=== PATIENT | male | born 1985 | race Caucasian/White ===

== ENCOUNTER 2019-01-30 15:46 | Emergency (ER) | payer OTHER, SELFPAY ==
[2019-01-30 16:00] VITALS: BP 139/81; PULSE 68; RESP 14; TEMP 37.2; O2SAT 100
--- NOTE | 2019-01-30 16:03 | DI.RAD.S_ITS ---
PROCEDURE: XR KNEE RT 3V INDICATIONS: stepped off ladder and had pain right knee. Increased w/ wb. TECHNIQUE: 3 views of the knee were acquired. COMPARISON: [facility], , KNEE 3V LEFT, 08/07/2008, 18:22. FINDINGS: Bones: No fractures or dislocations. No suspicious bony lesions. Soft tissues: No joint effusion. No suspicious soft tissue calcifications. IMPRESSION: No acute bony abnormality of the right knee. Dictated by: Hu Dugan M.D. on 01/30/2019 at 16:35 Approved by: Hu Dugan M.D. on 01/30/2019 at 16:45
--- NOTE | 2019-01-30 18:19 | ED.LOWEXIN ---
HPI - Extremity Injury (Lower) <ZAFAR Perez - Last Filed: 01/30/19 22:06> General Chief Complaint: Extremity Injury, Lower Stated Complaint: RT KNEE INJURY Time Seen by Provider: 01/30/19 18:19 Source: patient Mode of arrival: ambulatory Limitations: no limitations History of Present Illness HPI Narrative: 33-year-old healthy male that is a nonsmoker here for complaint of pain into his right knee. He states that he was stepping off of a ladder today at work when he stepped awkwardly twisting his knee slightly causing pain into the lateral aspect of his right knee. He denies any direct trauma to the knee. He is ambulatory into the emergency room although it does cause him some discomfort when he ambulates. He denies any other foot injuries or concerns at this timeframe. Related Data Home Medications Medication Instructions Recorded Confirmed CLONAZEPAM (Klonopin) 2 mg PO QID #0 09/01/09 LAMOTRIGINE (Lamictal ([place])) 200 mg PO Q DAY #0 09/01/09 dextroamphetamine-amphetamine mg PO #0 06/18/12 [Adderall] gabapentin [Gralise] mg PO #0 06/18/12 Allergies Allergy/AdvReac Type Severity Reaction Status Date / Time shellfish derived Allergy Severe Anaphylaxis Verified 01/30/19 16:02 Review of Systems <ZAFAR Perez - Last Filed: 01/30/19 22:06> Constitutional Denies chills, Denies fever(s), Denies lethargy and Denies weakness Eyes Denies change in vision, Denies eye discharge, Denies irritation and Denies loss of vision ENT Ears, Nose, Mouth, and Throat: Denies change in voice, Denies neck pain and Denies sore throat Cardiovascular Denies chest pain, Denies irregular heart rhythm, Denies lightheadedness, Denies palpitations, Denies dyspnea, Denies dyspnea on exertion and Denies orthopnea Respiratory Denies cough, Denies dyspnea, Denies dyspnea on exertion and Denies wheezing Gastrointestinal Gastrointestinal: Denies abdominal pain, Denies change in bowel habits, Denies diarrhea, Denies nausea and Denies vomiting Musculoskeletal Denies neck pain Comments: Right knee pain Integumentary/Breasts Denies pruritus, Denies erythema, Denies rash and Denies wounds Neurologic Denies confusion, Denies loss of vision and Denies weakness Psychiatric Denies anxiety, Denies confusion, Denies depression, Denies homicidal ideation and Denies suicidal ideation Endocrine Denies palpitations Hematologic/Lymphatic Denies easy bruising Allergic/Immunologic Denies wheezing PFSH <ZAFAR Perez - Last Filed: 01/30/19 22:06> Social History Smoking Status: Current some day smoker Social History Smoking Status: Current some day smoker Exam <ZAFAR Perez - Last Filed: 01/30/19 22:06> Initial Vital Signs Initial Vital Signs: Vital Signs Temperature 98.9 F 01/30/19 16:00 Pulse Rate 68 01/30/19 16:00 Respiratory Rate 14 01/30/19 16:00 Blood Pressure 139/81 01/30/19 16:00 Pulse Oximetry 100 01/30/19 16:00 Const General: cooperative and well developed Nutritional Appearance: well nourished Orientation: alert, awake, oriented x3 and not confused HENMT Throat: posterior oropharynx normal and posterior oropharynx abnormal Eyes Eyelids: eyelids normal Conjunctivae: conjunctivae normal Sclera: sclerae normal Pupils: PERRL EOM: EOM intact bilaterally Cardio Rate: regular rate Rhythm: regular rhythm Heart Sounds: no click, no gallops, no murmurs and no rubs Pulses: normal peripheral pulses Skin General: no rashes or lesions noted, No jaundice and No petechiae Neuro General: alert, oriented x3, gait normal and no focal motor deficits Speech: speech normal Extrem Other: right knee with no signs of trauma no ecchymosis. No swelling. No erythema. No open lesions. Distal sensation is intact. Distal range of motion is intact. Distal pulses are intact. Negative anterior-posterior drawer sign. Negative varus and valgus stress test. <Daron Gurrola DO - Last Filed: 01/31/19 06:56> Initial Vital Signs Initial Vital Signs: Vital Signs Temperature 98.9 F 01/30/19 16:00 Pulse Rate 68 01/30/19 16:00 Respiratory Rate 14 01/30/19 16:00 Blood Pressure 139/81 01/30/19 16:00 Pulse Oximetry 100 01/30/19 16:00 Course <ZAFAR Perez - Last Filed: 01/30/19 22:06> Orders Ordered: Discontinued Medications Ibuprofen (Advil) 400 mg PO NOW ONE Stop: 01/30/19 19:03 Last Admin: 01/30/19 19:12 Dose: Not Given Vital Signs - 8 hr 01/30/19 16:00 01/30/19 19:05 01/30/19 19:21 Temperature 98.9 F Pulse Rate 68 68 Pulse Rate [Right Dorsalis Pedis] 68 Respiratory Rate 14 Blood Pressure 139/81 Pulse Oximetry 100 100 <Daron uGrrola DO - Last Filed: 01/31/19 06:56> Orders Ordered: Discontinued Medications Ibuprofen (Advil) 400 mg PO NOW ONE Stop: 01/30/19 19:03 Last Admin: 01/30/19 19:12 Dose: Not Given Vital Signs - 8 hr 01/30/19 16:00 01/30/19 19:05 01/30/19 19:21 Temperature 98.9 F Pulse Rate 68 68 Pulse Rate [Right Dorsalis Pedis] 68 Respiratory Rate 14 Blood Pressure 139/81 Pulse Oximetry 100 100 MDM - Extremity Injury (Lower) <ZAFAR Perez - Last Filed: 01/30/19 22:06> Imaging Data R knee: Radiologist's impression: [place] [address] XRay Report Signed Patient: Rigo Petit PMR#: [id number] : 1985Acct:[id number] Age/Sex: 33 / MDate of Service: 01/30/19 Loc: ED Accession Number: [id number] Procedure: XR knee RT 3V Ordering Provider: Daron Gurrola D.O. PROCEDURE: XR KNEE RT 3V INDICATIONS: stepped off ladder and had pain right knee. Increased w/ wb. TECHNIQUE: 3 views of the knee were acquired. COMPARISON: [facility], , KNEE 3V LEFT, 08/07/2008, 18:22. FINDINGS: Bones: No fractures or dislocations. No suspicious bony lesions. Soft tissues: No joint effusion. No suspicious soft tissue calcifications. IMPRESSION: No acute bony abnormality of the right knee. Dictated by: Hu Dugan M.D. on 01/30/2019 at 16:35 Approved by: Hu Dugan M.D. on 01/30/2019 at 16:45 MDM Narrative Medical decision making narrative: X-ray the right knee was obtained was negative for any acute findings. Signs and symptoms presents sprain to the right knee. He is placed in knee immobilizer and crutches for comfort and support. rest area. Use [id number] ibuprofen as needed for any discomfort. Ice and elevation help with any swelling. Follow up with primary care provider. May need to have MRI if symptoms do not resolve. Return emergency room for worsening symptoms. Discharge Plan Departure Patient Disposition: Home Clinical Impression: Right knee sprain Qualifiers: Encounter type: initial encounter Involved ligament of knee: unspecified ligament Qualified Code(s): S83.91XA - Sprain of unspecified site of right knee, initial encounter Discharge Date/Time: 01/30/19 19:22 Interventions: ED Discharge Assessment Last Done: 01/30/19 19:21 Instructions: DI for Knee Sprain Activity Restrictions/Additional Instructions: x-ray of the right and knee was obtained and was negative for any acute fractures or findings. Signs and symptoms presents sprain to the right knee. Rest area. Use knee immobilizer and crutches for nonweightbearing until able to bear weight pain free. Follow up with primary care provider. Use [id number] ibuprofen as needed for any discomfort. Ice as needed and elevation to help with swelling. If symptoms do not resolve recommend follow up with primary care provider as may need MRI for further evaluation. For any worsening symptoms return to the emergency room. Prescriptions: No Action CLONAZEPAM (Klonopin) 2 mg PO QID Qty: 0 RF: 0 LAMOTRIGINE (Lamictal ([place])) 200 mg PO Q DAY Qty: 0 RF: 0 gabapentin [Gralise] 300 MG tablet extended release 24 hr PO Qty: 0 RF: 0 dextroamphetamine-amphetamine [Adderall] 30 MG tablet PO Qty: 0 RF: 0 Referrals: [facility], [facility] [Provider Group] Stand Alone Forms: Work Release Note <Daron Gurrola DO - Last Filed: 01/31/19 06:56> Cosign ED Attending Josueature Attestation: I was immediately available in the department for consultation. Documentation has been reviewed. I agree with assessment and plan.
[2019-01-30 19:05] VITALS: PULSE 68
[2019-01-30 19:21] VITALS: PULSE 68; O2SAT 100
== END 2019-01-30 19:22 | disposition home or self-care (01) ==
PROVIDERS: Emergency Provider Nurse Practitioner Family
DX: S83.91XA Sprain of unspecified site of right knee, initial encounter (principal); W11.XXXA Fall on and from ladder, initial encounter; Y99.0 Civilian activity done for income or pay
CPT/HCPCS: 73562; 99283

== ENCOUNTER 2022-12-20 13:01 | Emergency (ER) | payer MEDICARE, MEDICAID, SELFPAY ==
[2022-12-20 13:06] VITALS: PULSE 66; O2SAT 97
[2022-12-20 13:08] VITALS: BP 120/67; PULSE 61; RESP 20; TEMP 36.6; O2SAT 98
[2022-12-20 13:09] VITALS: BP 120/67; PULSE 62; O2SAT 97
--- NOTE | 2022-12-20 13:15 | ED.CHESTPAIN ---
HPI - Chest Pain <Kayley Pollock PA-C - Last Filed: 12/20/22 19:58> General Chief Complaint: Chest Pain Stated Complaint: chest pain Time Seen by Provider: 12/20/22 13:13 Source: patient and EMS Mode of arrival: EMS Limitations: no limitations History of Present Illness HPI narrative: Patient is a 37-year-old presenting for evaluation of chest pain since he woke up at noon this afternoon. He describes his symptoms as having difficulty breathing with pain in his chest with some slight radiation down his left arm. He says that nothing seems to improve the pain, and it worsens when he attempts to force of breath. Denies any new activities last night, and denies working, because he is on disability. Chronic conditions include anxiety for which he takes clonazepam 1 mg t.i.d.. He also notes that he takes ketamine intranasally for depression. He says he takes this as needed. This morning, he has taken 2 clonazepam and a few doses of ketamine. He does note that he is a current smoker. Denies illegal drug activity he denies family history of heart attack, but he does not know about his dad side. His mom has come in the ED to be with him he says the pain in his chest hurts worse with leaning forward he is noted some increased sweating last night, but denies known fever. He reports increased pain in his chest when stretching his shoulders back and raising his hands above his head in a stretch in addition to a deep inhale. He reprots improvement in pain when laying back. He cannot recall any new activity last night. He denies recent illness or coughing. He reports a feeling of weakness and dizziness. He is a current smoker. Related Data Home Medications Medication Instructions Recorded Confirmed CLONAZEPAM (Klonopin) 2 mg PO QID ##0 09/01/09 LAMOTRIGINE (Lamictal ([place])) 200 mg PO Q DAY ##0 09/01/09 dextroamphetamine-amphetamine 30 mg PO ##0 06/18/12 mg tablet (Adderall) gabapentin 300 mg tablet,extended mg PO ##0 06/18/12 release 24 hr (Gralise) Allergies Allergy/AdvReac Type Severity Reaction Status Date / Time shellfish derived Allergy Severe Anaphylaxis Verified 12/20/22 13:12 Review of Systems <Kayley Pollock PA-C - Last Filed: 12/20/22 19:58> Review of Systems Narrative: per HPI Patient History <Kayley Pollock PA-C - Last Filed: 12/20/22 19:58> Social History Smoking Status: Current some day smoker Smoking Status: Current some day smoker alcohol intake frequency: 0-2 drinks per day Substance Use Type: marijuana Exam <Kayley Pollock PA-C - Last Filed: 12/20/22 19:58> Narrative Exam Narrative: GENERAL: 37 year old patient appears stated age. Well-developed patient, in mild distress with sweating. HEAD: Atraumatic. Normocephalic. EYES: Pupils equal round and reactive. No scleral icterus. No injection or drainage. Airway patent. NECK: Trachea midline. Non tender CARDIOVASCULAR: Regular rate and rhythm without murmurs, gallops, or rubs. Chest pain worse while leaning forward, reproducible and worse on left side with applied external pressure. pain increased with leftsided external pressure. RESPIRATORY: Clear to auscultation. Breath sounds equal bilaterally. No wheezes, rales, or rhonchi. GASTROINTESTINAL: Abdomen soft, non-tender, nondistended. EXTREMITIES: No edema or joint tenderness. BACK: Nontender without deformity. MS: Equal strength in bilateral machine welder 4+, NEURO: AOx3. SKIN: No rash or erythema of visible areas, ovoid scar under left clavicle Initial Vital Signs Initial Vital Signs: Vital Signs Pulse Rate 66 12/20/22 13:06 Pulse Oximetry 97 12/20/22 13:06 <Aundrea Brown MD - Last Filed: 12/21/22 01:08> Initial Vital Signs Initial Vital Signs: Vital Signs Pulse Rate 66 12/20/22 13:06 Pulse Oximetry 97 12/20/22 13:06 Course <Kayley Pollock PA-C - Last Filed: 12/20/22 19:58> Orders Ordered: ED Orders 12/20/22 13:27 XR chest 1V Stat 12/20/22 13:29 EKG-12 Lead Stat Reevaluation(s) Reevaluation #1: Went in to discuss EKG results with patient and his mother. Discussed that EKG did not show concerning cardiac changes at this time. Patient reports that the radiation of pain to the left seems to be improving. He re-affirms that pain seems to be worsened by specific movements and external pressure. We are awaiting CXR and radiologist read. Vital signs continue to be within normal limits. Reevaluation #2: During check with patient and his mom, he appears more anxious and is walking around his room. He has removed his leads and blood pressure cuff. He denies change in symptoms since coming in. He notes continued pain in his chest with deep breathing unchanged by activity. He reports that he feels out of it generally. We discussed radiologist interpretation of his CXR which was normal. We discussed that his condition is likely due to either anxiety or musculoskeletal origin because pain is reproducible with external chest pressure. He notes that his left shoulder hurts more with flexion and extension. Physical exam does not show any restricted ROM or bruising or other abnormalitis except tenderness on exam. He also defers ibuprofen because he says it doesn't help him. He states that he would like to go home instead of pursuing further work up. Vital Signs Vital signs: Vital Signs - 8 hr 12/20/22 13:08 12/20/22 13:06 12/20/22 13:09 Temperature 97.8 F Pulse Rate 61 66 62 Respiratory Rate 20 Blood Pressure 120/67 Pulse Oximetry 98 97 97 Oxygen Delivery Method Room Air 12/20/22 13:09 12/20/22 13:30 12/20/22 13:30 Temperature Pulse Rate 64 Respiratory Rate 24 Blood Pressure 120/67 113/64 Pulse Oximetry 98 Oxygen Delivery Method 12/20/22 14:00 12/20/22 14:00 12/20/22 15:23 Temperature Pulse Rate 64 64 Respiratory Rate 29 H 16 Blood Pressure 109/64 110/65 Pulse Oximetry 98 99 Oxygen Delivery Method Room Air <Aundrea Brown MD - Last Filed: 12/21/22 01:08> Orders Ordered: ED Orders 12/20/22 13:27 XR chest 1V Stat 12/20/22 13:29 EKG-12 Lead Stat Vital Signs Vital signs: Vital Signs - 8 hr 12/20/22 13:08 12/20/22 13:06 12/20/22 13:09 Temperature 97.8 F Pulse Rate 61 66 62 Respiratory Rate 20 Blood Pressure 120/67 Pulse Oximetry 98 97 97 Oxygen Delivery Method Room Air 12/20/22 13:09 12/20/22 13:30 12/20/22 13:30 Temperature Pulse Rate 64 Respiratory Rate 24 Blood Pressure 120/67 113/64 Pulse Oximetry 98 Oxygen Delivery Method 12/20/22 14:00 12/20/22 14:00 12/20/22 15:23 Temperature Pulse Rate 64 64 Respiratory Rate 29 H 16 Blood Pressure 109/64 110/65 Pulse Oximetry 98 99 Oxygen Delivery Method Room Air MDM - Chest Pain <Kayley Pollock PA-C - Last Filed: 12/20/22 19:58> ECG Data Interpretation: Reviewed with Dr. Jamil. Normal EKG. Shows sinus rhythm with normal NC interval, QT interval and no axis deviation. No ST elevation noted. MDM Narrative Medical decision making narrative: Patient presenting to the emergency department for evaluation of chest pain starting in the last hour when he woke up. He denies any new activity, denies recent trauma or coughing or illness nor family history of cardiac event at early age. He notes that he smokes and denies illegal substance use. We have done an EKG, which showed no abnormalities in addition to a chest x-ray which did not show abnormalities. He has chronic conditions of anxiety and depression for which he takes clonazepam and ketamine daily. I discussed the case with Dr. Jamil, and he agrees that based upon stated symptoms or reproducible chest pain, this is likely not a cardiac concern. I have discussed this with patient. I believe that his concern seems to be musculoskeletal in nature because pain is reproducible upon exam. I do not believe that it is due to pericarditis because his EKG did not reflect ST changes, and pain seemed to worsen with leaning forward. Because it seems to hurt in his chest more with stretching and external pressure, I believe this could be mostly likely due to musculoskeletal cause. He did exhibit anxiety while in the ED and is treated for this regularly, so this could be contributing as well. I have discussed warning sigs to return to the ER including return of chest pain with activity, unremitting pain despite position change. Differential diagnoses include: AK, ACS, Pericarditis, Costochondritis, Anxiety. Disposition: see below, along with detailed discharge instructions that have been reviewed with patient as well as indications for ED re-evaluation and additional outpatient follow up Discharge Plan Departure Patient Disposition: Home Clinical Impression: Chest pain, Costochondritis, Anxiety Activity Restrictions/Additional Instructions: We discussed that you may be discharged home today. You have agreed with this assessment, and would like to go home instead of pursuing further evaluation. We discussed that you should return if your shortness of breath worsens or chest pain worsens. We discussed some of the signs of cardiac chest pain including worsening with activity, or increased shortness of breath. I recommend you follow up with your psychiatrist to discuss anxiety management as this may be related. Likely, your condition today is due to a musculoskeletal issue called costocondritis. I recommend you take ibuprofen and use a warm heating pack to relieve pain. Also take your anxiety and depression medications as prescribed. Please make sure to monitor your symptoms and return if condition worsens. Prescriptions: No Action CLONAZEPAM (Klonopin) 2 mg PO QID Qty: 0 LAMOTRIGINE (Lamictal ([place])) 200 mg PO Q DAY Qty: 0 gabapentin [Gralise] 300 MG tablet extended release 24 hr PO Qty: 0 dextroamphetamine-amphetamine [Adderall] 30 MG tablet PO Qty: 0 Referrals: Miscellaneous,Doctor, [Primary Care Provider] - Stand Alone Forms: Patient Portal/API <Aundrea Brown MD - Last Filed: 12/21/22 01:08> [facility]: I was immediately available in the department for consultation throughout this patient's visit. I agree with documentation as above. Aundrea Brown MD
--- NOTE | 2022-12-20 13:27 | DI.RAD.S_ITS ---
PROCEDURE: XR CHEST 1V INDICATIONS: Chest pain TECHNIQUE: One view of the chest was acquired. COMPARISON: None. FINDINGS: Surgical changes and devices: None. Lungs and pleura: Lungs are clear. No pleural effusions or pneumothorax. Mediastinum: Mediastinal contours appear normal. Heart size is normal. Bones and chest wall: No suspicious bony lesions. Overlying soft tissues appear unremarkable. IMPRESSION: No acute cardiopulmonary findings Approved by: Ky Araiza M.D. on 12/20/2022 at 13:28
[2022-12-20 13:30] VITALS: BP 113/64; PULSE 64; RESP 24; O2SAT 98
[2022-12-20 14:00] VITALS: BP 109/64; PULSE 64; RESP 29; O2SAT 98
[2022-12-20 15:23] VITALS: BP 110/65; PULSE 64; RESP 16; O2SAT 99
== END 2022-12-20 15:23 | disposition home or self-care (01) ==
PROVIDERS: Emergency Provider Physician Assistant
DX: R07.9 Chest pain, unspecified (principal); M94.0 Chondrocostal junction syndrome [Tietze]; F41.9 Anxiety disorder, unspecified
CPT/HCPCS: 71045; 93005; 93010; 99283; 99284

== ENCOUNTER → 2023-01-19 16:06 | Outpatient (CLI) | payer MEDICARE, MEDICAID, SELFPAY | PROVIDERS: Visit Provider Physician Assistant | DX: L02.91 Cutaneous abscess, unspecified (principal) | CPT/HCPCS: 87070; 87075; 87077; 87147; 87186; 87205 ==

== ENCOUNTER → 2023-04-13 11:06 | Outpatient (CLI) | payer MEDICARE, MEDICAID, SELFPAY | PROVIDERS: Visit Provider Physician Assistant | DX: B35.0 Tinea barbae and tinea capitis (principal) | CPT/HCPCS: 87220 ==

== ENCOUNTER 2023-04-15 17:40 | Emergency (ER) | payer MEDICARE, MEDICAID, SELFPAY ==
[2023-04-15 17:40] VITALS: BP 134/74; PULSE 75; RESP 15; TEMP 37.1; O2SAT 100
--- NOTE | 2023-04-15 17:55 | ED_ITS ---
HPI - Psych General Chief Complaint: Psychiatric Symptoms Stated Complaint: DHEERAJ - Mental Health Time Seen by Provider: 04/15/23 17:55 Source: police Mode of arrival: Ambulatory Limitations: no limitations History of Present Illness HPI Narrative: This is a 37-year-old male with reported history of bipolar on lamotrigine clonazepam and taking ketamine intermittently. Patient currently lives with his grandparents. Spent the last 3 hours trying to be talked out of his room by law enforcement after destroying the bathroom and part of the bedroom leaving holes in the em, destroying all of the light bulbs, Related Data Home Medications Medication Instructions Recorded Confirmed CLONAZEPAM (Klonopin) 2 mg PO QID ##0 09/01/09 01/19/23 LAMOTRIGINE (Lamictal ([place])) 200 mg PO Q DAY ##0 09/01/09 01/19/23 dextroamphetamine-amphetamine 30 mg PO ##0 06/18/12 01/19/23 mg tablet (Adderall) gabapentin 300 mg tablet,extended mg PO ##0 06/18/12 01/19/23 release 24 hr (Gralise) Previous Rx's Medication Instructions Recorded sulfamethoxazole 800 1 tab PO Q12H #14 tabs 01/19/23 mg-trimethoprim 160 mg tablet (Bactrim DS) clotrimazole 1 % topical cream 1 applic topical BID 4 weeks #30 04/13/23 grams Allergies Allergy/AdvReac Type Severity Reaction Status Date / Time shellfish derived Allergy Severe Anaphylaxis Verified 04/15/23 17:48 Patient History Social History Smoking Status: Current some day smoker Smoking Status: Current some day smoker alcohol intake frequency: 0-2 drinks per day Substance Use Type: marijuana Exam Initial Vital Signs Initial Vital Signs: Vital Signs Temperature 98.8 F 04/15/23 17:40 Pulse Rate 75 04/15/23 17:40 Respiratory Rate 15 04/15/23 17:40 Blood Pressure 134/74 04/15/23 17:40 Pulse Oximetry 100 04/15/23 17:40 Oxygen Delivery Method Room Air 04/15/23 17:40 Course Vital Signs Vital signs: Vital Signs - 8 hr 04/15/23 17:40 Temperature 98.8 F Pulse Rate 75 Respiratory Rate 15 Blood Pressure 134/74 Pulse Oximetry 100 Oxygen Delivery Method Room Air Discharge Plan Departure Prescriptions: No Action clotrimazole 1 % cream 1 applic topical BID 28 Days Qty: 30 0RF Rx Instructions: Apply to lesions on face and over feet for 1-4 weeks. May stop if symptoms resolve. sulfamethoxazole-trimethoprim [Bactrim DS] 800-160 mg tablet 1 tab PO Q12H Qty: 14 0RF CLONAZEPAM (Klonopin) 2 mg PO QID Qty: 0 LAMOTRIGINE (Lamictal ([place])) 200 mg PO Q DAY Qty: 0 gabapentin [[place]] 300 MG tablet extended release 24 hr PO Qty: 0 dextroamphetamine-amphetamine [Adderall] 30 MG tablet PO Qty: 0
--- NOTE | 2023-04-15 18:42 | ED_ITS ---
HPI - Psych General Chief Complaint: Psychiatric Symptoms Stated Complaint: DHEERAJ - Mental Health Time Seen by Provider: 04/15/23 17:55 Source: patient and police Mode of arrival: Ambulatory Limitations: no limitations History of Present Illness HPI Narrative: Patient is a 37-year-old male who was brought to the emergency department by police for evaluation for what initially was described as they potential mental health issue and anger issues at home. He does live with his grandparents. Apparently the patient barricaded himself in his room. He cause quite a bit of damage to the house with both hitting the em and throwing things. They were eventually able to get him out of his room. He was not given any sedation prior to arrival. Here in the emergency department the patient denied suicidal or homicidal ideation. He has a history of anxiety depression and PTSD. He would not specifically say why he was angry earlier today. There was no reports that he injured anyone else or himself. He does see a mental health provider. He does take until health medications. Related Data Home Medications Medication Instructions Recorded Confirmed CLONAZEPAM (Klonopin) 2 mg PO QID ##0 09/01/09 01/19/23 LAMOTRIGINE (Lamictal ([place])) 200 mg PO Q DAY ##0 09/01/09 01/19/23 dextroamphetamine-amphetamine 30 mg PO ##0 06/18/12 01/19/23 mg tablet (Adderall) gabapentin 300 mg tablet,extended mg PO ##0 06/18/12 01/19/23 release 24 hr (Gralise) Previous Rx's Medication Instructions Recorded sulfamethoxazole 800 1 tab PO Q12H #14 tabs 01/19/23 mg-trimethoprim 160 mg tablet (Bactrim DS) clotrimazole 1 % topical cream 1 applic topical BID 4 weeks #30 04/13/23 grams Allergies Allergy/AdvReac Type Severity Reaction Status Date / Time shellfish derived Allergy Severe Anaphylaxis Verified 04/15/23 17:48 Review of Systems Review of Systems Narrative: Patient denies any specific complaints. Patient History Social History Smoking Status: Current some day smoker Smoking Status: Current some day smoker alcohol intake frequency: 0-2 drinks per day Substance Use Type: marijuana Exam Initial Vital Signs Initial Vital Signs: Vital Signs Temperature 98.8 F 04/15/23 17:40 Pulse Rate 75 04/15/23 17:40 Respiratory Rate 15 04/15/23 17:40 Blood Pressure 134/74 04/15/23 17:40 Pulse Oximetry 100 04/15/23 17:40 Oxygen Delivery Method Room Air 04/15/23 17:40 Const General: comfortable HENMT Head: normal to inspection and normocephalic Resp Effort & Inspection: normal respiratory effort Cardio Rate: regular rate Skin General: no rashes or lesions noted Neuro General: patient alert, patient awake, patient oriented x3 and moves all extremities Extrem General: normal to inspection Psych Other: Patient is somewhat angry and stand office but is alert oriented x3. Denies suicidal homicidal ideation. Is somewhat cooperative with answering questions. Scores GCS Peyman coma scale eye opening: Spontaneous [place] coma scale verbal response: Orientated Peyman coma scale motor response: Obey commands Peyman coma scale total score: 15 Course Orders Ordered: ED Orders 04/15/23 18:32 Acetaminophen Stat Complete Blood Count AUTO DIFF Stat Comprehensive Metabolic Panel Stat Ethanol (ETOH) Stat Free T4, Direct Thyroxine Stat Salicylate Stat Thyroid Stimulating Hormone Stat Vital Signs Vital signs: Vital Signs - 8 hr 04/15/23 17:40 Temperature 98.8 F Pulse Rate 75 Respiratory Rate 15 Blood Pressure 134/74 Pulse Oximetry 100 Oxygen Delivery Method Room Air MDM - Psych MDM Narrative Medical decision making narrative: Patient was alert oriented x3. Has a GCS of 15. Has not clinically intoxicated. Is not homicidal. Is not suicidal. No signs of trauma. Patient does not want admitted to the hospital. There was no indication for an involuntary admission. Patient does not want blood drawn. No indication to keep the patient here in the emergency department. Discharge patient. He was given return precautions. Discharge Plan Departure Patient Disposition: Home Clinical Impression: Anger reaction Activity Restrictions/Additional Instructions: I do recommend that you continue to take all of your medications as directed. I also recommend that on Wednesday you contact your mental health provider for a follow-up. Return to the emergency department for new or worsening symptoms. Prescriptions: No Action clotrimazole 1 % cream 1 applic topical BID 28 Days Qty: 30 0RF Rx Instructions: Apply to lesions on face and over feet for 1-4 weeks. May stop if symptoms resolve. sulfamethoxazole-trimethoprim [Bactrim DS] 800-160 mg tablet 1 tab PO Q12H Qty: 14 0RF CLONAZEPAM (Klonopin) 2 mg PO QID Qty: 0 LAMOTRIGINE (Lamictal (Rosebud)) 200 mg PO Q DAY Qty: 0 gabapentin [Gralise] 300 MG tablet extended release 24 hr PO Qty: 0 dextroamphetamine-amphetamine [Adderall] 30 MG tablet PO Qty: 0 Stand Alone Forms: Patient Portal/API
--- NOTE | 2023-04-15 19:07 | PC.NURSE ---
pt refused to speak with me after explaining why we might want to do blood work. pt used lots of swear words calling us liars, stating he will not be staying, he does not agree to blood work. nurse left room to let pt calm down. informed provider.
== END 2023-04-15 19:27 | disposition home or self-care (01) ==
PROVIDERS: Emergency Provider Emergency Medicine
DX: R45.4 Irritability and anger (principal)
CPT/HCPCS: 99281

== ENCOUNTER → 2023-06-17 16:11 | Outpatient (CLI) | payer MEDICARE, MEDICAID, SELFPAY | PROVIDERS: Visit Provider Nurse Practitioner Family | DX: L08.9 Local infection of the skin and subcutaneous tissue, unspecified (principal) | CPT/HCPCS: 87070; 87075; 87077; 87147; 87186; 87205 ==

== ENCOUNTER 2023-08-06 17:09 | Emergency (ER) | payer MEDICARE, MEDICAID, SELFPAY ==
[2023-08-06 17:16] VITALS: BP 160/72; PULSE 78; RESP 16; TEMP 37.1; O2SAT 99
== END 2023-08-06 18:25 | disposition left against medical advice (07) ==
PROVIDERS: Emergency Provider Emergency Medicine
CPT/HCPCS: 99281

== ENCOUNTER 2023-10-11 05:50 | Emergency (ER) | payer MEDICARE, MEDICAID, SELFPAY ==
[2023-10-11 05:57] VITALS: BP 126/72; PULSE 74; RESP 16; TEMP 37.1; O2SAT 98
--- NOTE | 2023-10-11 06:08 | ED.SKABFB ---
HPI - Skin/Abscess/Foreign Bdy General Chief complaint: Skin/Abscess/Foreign Body Stated complaint: infection on face Time Seen by Provider: 10/11/23 05:51 Source: patient Mode of arrival: Ambulatory Limitations: no limitations History of Present Illness HPI narrative: Patient is a 38-year-old male. For the past several months he has been dealing with issues of a infection on his face particularly along his facial hair on his lower jaw and cheeks. The symptoms have been going on for the past several months. He has been on antibiotics. He does not remember the 1st antibiotic he has been on but he knows that he is taken doxycycline. He has seen Dermatology. He states that the shutdown coordinator really did not give him any specific answers to what was going on. He stated the shutdown coordinator did not specifically think that he needed other antibiotics. There was a culture taken earlier this year. Review of the medical record shows this was a pansensitive staph. No dental pain no fevers. No problems swallowing. Related Data Home Medications Medication Instructions Recorded Confirmed CLONAZEPAM (Klonopin) 2 mg PO QID ##0 09/01/09 07/02/23 LAMOTRIGINE (Lamictal ([place])) 200 mg PO Q DAY ##0 09/01/09 07/02/23 dextroamphetamine-amphetamine 30 mg PO ##0 06/18/12 07/02/23 mg tablet (Adderall) gabapentin 300 mg tablet,extended mg PO ##0 06/18/12 07/02/23 release 24 hr (Gralise) Previous Rx's Medication Instructions Recorded mupirocin 2 % topical ointment 1 applic topical TID #22 grams 06/17/23 sulfamethoxazole 800 1 tab PO Q12H #14 tabs 06/22/23 mg-trimethoprim 160 mg tablet (Bactrim DS) Allergies Allergy/AdvReac Type Severity Reaction Status Date / Time shellfish derived Allergy Severe Anaphylaxis Verified 08/06/23 17:16 Review of Systems Constitutional Constitutional: Reports system reviewed and no additional complaints, except as documented Integumentary/Breasts Skin/Breast: Reports system reviewed and no additional complaints, except as documented Patient History Social History Smoking Status: Current some day smoker Smoking Status: Current some day smoker alcohol intake frequency: 0-2 drinks per day Substance Use Type: marijuana Exam Initial Vital Signs Initial Vital Signs: Vital Signs Temperature 98.7 F 10/11/23 05:57 Pulse Rate 74 10/11/23 05:57 Respiratory Rate 16 10/11/23 05:57 Blood Pressure 126/72 10/11/23 05:57 Pulse Oximetry 98 10/11/23 05:57 Oxygen Delivery Method Room Air 10/11/23 05:57 HENMT Mouth: oral mucosae normal, lip normal and tongue normal Skin Other: Patient does have facial hair. It was somewhat difficult to see through the facial hair to the underlying skin. He does have some patches on his cheeks that are consistent with dry skin/eczema. There is no erythema. Course Orders Ordered: ED Orders 10/11/23 06:21 Wound Culture and Gram Stain Stat Vital Signs Vital signs: Vital Signs - 8 hr 10/11/23 05:57 Temperature 98.7 F Pulse Rate 74 Respiratory Rate 16 Blood Pressure 126/72 Pulse Oximetry 98 Oxygen Delivery Method Room Air MDM - Skin/Abscess/Foreign Bdy MDM Narrative Medical decision making narrative: Patient is not septic. No respiratory distress. He was able to express what appeared to be blood and potentially small amount of purulent material from a wound on his chin. This was cultured. We will wait for the culture to resolve before starting on any antibiotics. Patient was thinking that maybe he needed admitted to the hospital for IV vancomycin. Advised him that he was not need admitted to the hospital today. Would not start him on IV antibiotics based on the exam today. I did tell him that he should return to his shutdown coordinator for further evaluation. We will contact him if we need to start any antibiotics based on the culture today. Discharge Plan Departure Patient Disposition: Home Clinical Impression: Skin lesion of face Activity Restrictions/Additional Instructions: The culture that was taken today does take a couple days to come back. We will contact you based on the results of this if we need to start any antibiotics. I recommend that you contact your primary provider for a follow-up and to discuss another evaluation by dermatology. Prescriptions: No Action mupirocin 2 % ointment 1 applic topical TID Qty: 22 0RF CLONAZEPAM (Klonopin) 2 mg PO QID Qty: 0 LAMOTRIGINE (Lamictal ([place])) 200 mg PO Q DAY Qty: 0 gabapentin [Gralise] 300 MG tablet extended release 24 hr PO Qty: 0 dextroamphetamine-amphetamine [Adderall] 30 MG tablet PO Qty: 0 sulfamethoxazole-trimethoprim [Bactrim DS] 800-160 mg tablet 1 tab PO Q12H Qty: 14 0RF Referrals: Miscellaneous,Doctor, MD [Primary Care Provider] - Stand Alone Forms: Patient Portal/API
== END 2023-10-11 06:22 | disposition home or self-care (01) ==
PROVIDERS: Emergency Provider Emergency Medicine
DX: L98.9 Disorder of the skin and subcutaneous tissue, unspecified (principal)
CPT/HCPCS: 87070; 87075; 87147; 87205; 99281; 99282

== ENCOUNTER 2023-12-02 10:25 | Emergency (ER) | payer MEDICARE, SELFPAY ==
[2023-12-02 10:27] VITALS: BP 133/76; PULSE 66; RESP 14; TEMP 37.1; O2SAT 97
--- NOTE | 2023-12-02 10:47 | ED_ITS ---
HPI - Skin/Abscess/Foreign Bdy General Chief complaint: Skin/Abscess/Foreign Body Stated complaint: infection in face cough Time Seen by Provider: 12/02/23 10:42 Source: patient Mode of arrival: Ambulatory Limitations: no limitations History of Present Illness HPI narrative: 38-year-old male presents for evaluation of facial abscess. Patient states that he has intermittent skin problems at flare-up and he needs to be treated with antibiotics. He has seen the walk-in clinic and other ERs in the past, however his last dose of antibiotics was several months ago. He states that he has previously seen a [facility] marketing [facility] skin in the remote past, but his skin condition was not active at that time and so the [facility] skin did not have any helpful recommendations for his symptoms. He states that he was able to drain a moderate amount of pus from his wound, but it does not seem to be adequately drained and he is requesting drainage and antibiotics. Related Data Home Medications Medication Instructions Recorded Confirmed CLONAZEPAM (Klonopin) 2 mg PO QID ##0 09/01/09 07/02/23 LAMOTRIGINE (Lamictal ([place])) 200 mg PO Q DAY ##0 09/01/09 07/02/23 dextroamphetamine-amphetamine 30 mg PO ##0 06/18/12 07/02/23 mg tablet (Adderall) gabapentin 300 mg tablet,extended mg PO ##0 06/18/12 07/02/23 release 24 hr (Gralise) Previous Rx's Medication Instructions Recorded mupirocin 2 % topical ointment 1 applic topical TID #22 grams 06/17/23 sulfamethoxazole 800 1 tab PO Q12H #14 tabs 06/22/23 mg-trimethoprim 160 mg tablet (Bactrim DS) clindamycin HCl 150 mg capsule 450 mg (3 x 150 mg) PO TID 7 days 12/02/23 #63 caps Allergies Allergy/AdvReac Type Severity Reaction Status Date / Time shellfish derived Allergy Severe Anaphylaxis Verified 12/02/23 10:27 Review of Systems Review of Systems Narrative: Negative except as noted above Patient History Social History Smoking Status: Current some day smoker Smoking Status: Current some day smoker alcohol intake frequency: holidays/special occasions only Substance Use Type: marijuana Exam Initial Vital Signs Initial Vital Signs: Vital Signs Temperature 98.8 F 12/02/23 10:27 Pulse Rate 66 12/02/23 10:27 Respiratory Rate 14 12/02/23 10:27 Blood Pressure 133/76 12/02/23 10:27 Pulse Oximetry 97 12/02/23 10:27 Oxygen Delivery Method Room Air 12/02/23 10:27 Const: Awake, alert, no acute distress, nontoxic appearing Cardiac: regular rate, regular rhythm RESP: unlabored, clear bilaterally, no wheezing Skin: nodular lesions over face on cheeks and chin. Indurated, erythematous sore on L cheek Neuro: AO x3, CN II-XII grossly intact, moves all extremities Psych: affect normal, mood normal, not suicidal, not homicidal Course Vital Signs Vital signs: Vital Signs - 8 hr 12/02/23 10:27 Temperature 98.8 F Pulse Rate 66 Respiratory Rate 14 Blood Pressure 133/76 Pulse Oximetry 97 Oxygen Delivery Method Room Air MDM - Skin/Abscess/Foreign Bdy MDM Narrative Medical decision making narrative: Patient presenting for evaluation of facial sores. Based on patient's description as well as exam I suspect this is nodular acne, however patient would be best served following up with a [facility] marketing [facility] skin. At the patient's request I did make a small opening into the left facial wound. He requested that I not anesthetize the area and so no lidocaine or other analgesia was placed. A culture was obtained and sent to lab. Patient states that doxycycline did not seem to help him previously and requested a different medication. He does have a history of staph aureus that appeared to be pansensitive. Clindamycin sent to pharmacy of choice. Patient was again counseled that he should follow up with a [facility] marketing [facility] and skin. Advised warm compresses and minimal manipulation of the lesions. Discharge Plan Departure Patient Disposition: Home Clinical Impression: Abscess of skin or subcutaneous tissue Instructions: DI for Cellulitis -- Adult Prescriptions: New clindamycin HCl 150 mg capsule 450 mg PO TID 7 Days Qty: 63 0RF No Action mupirocin 2 % ointment 1 applic topical TID Qty: 22 0RF CLONAZEPAM (Klonopin) 2 mg PO QID Qty: 0 LAMOTRIGINE (Lamictal ([place])) 200 mg PO Q DAY Qty: 0 gabapentin [Gralise] 300 MG tablet extended release 24 hr PO Qty: 0 dextroamphetamine-amphetamine [Adderall] 30 MG tablet PO Qty: 0 sulfamethoxazole-trimethoprim [Bactrim DS] 800-160 mg tablet 1 tab PO Q12H Qty: 14 0RF Referrals: Miscellaneous,Doctor, MD [Primary Care Provider] - Stand Alone Forms: Patient Portal/API
--- NOTE | 2023-12-02 11:17 | PC.NURSE ---
Small Incision performed by Dr. Rodriguez (0.5cm), drainage send to lab to culture.
== END 2023-12-02 11:22 | disposition home or self-care (01) ==
PROVIDERS: Emergency Provider Emergency Medicine
DX: L02.01 Cutaneous abscess of face (principal)
CPT/HCPCS: 99281

== ENCOUNTER 2023-12-08 20:39 | Emergency (ER) | payer MEDICARE, SELFPAY ==
[2023-12-08 20:45] VITALS: BP 135/92; PULSE 80; RESP 16; TEMP 36.4; O2SAT 100
[2023-12-08 21:27] LABS: UR Morphine/Opiate cutoff 300 Negative (Negative); Ur Creatinine Normal (Normal); Ur Specific Gravity Normal (Normal); Urine Amphetamines Negative (Negative); Urine Barbiturates Negative (Negative); Urine Benzodiazepines Negative (Negative); Urine Cocaine Negative (Negative); Urine MDMA Negative (Negative); Urine Methadone Negative (Negative); Urine Methamphetamines Negative (Negative); Urine Oxycodone Negative (Negative); Urine Phencyclidine Negative (Negative); Urine Tetrahydrocannabinol Positive (Negative); Urine Tricyclic Antidepressant Negative (Negative); Urine pH Normal (Normal)
[2023-12-08 21:31] LABS: Hematocrit 42.8 % (41-53); Hemoglobin 14.4 g/dL (13.5-17.5); Mean Corpuscular HGB Conc 33.7 % (30-36); Mean Corpuscular Hemoglobin 29.6 PG (26-34); Platelet Count 255 X10^3/uL (150-400); Red Blood Cell Count 4.87 X10^6/uL (4.5-5.9); Red Cell Distribution Width 14.1 % (11.6-14.8)
[2023-12-08 21:33] LABS: Add Manual Diff / Slide Review YES
--- NOTE | 2023-12-08 21:34 | ED_ITS ---
HPI - Psych <Daron Gurrola DO - Last Filed: 12/11/23 10:34> General Chief Complaint: Psychiatric Symptoms Stated Complaint: Mental health evaluation Time Seen by Provider: 12/08/23 20:41 History of Present Illness HPI Narrative: 38-year-old male presents with police for evaluation of agitation this evening. Historically he carried a diagnosis of bipolar but eventually this was changed to autism. He only takes the occasional Klonopin and states that he has been attempting to taper off for many weeks if not longer. He states it in the past that had taken him upwards of 9 months to come off benzodiazepines. He denies any suicidal or homicidal ideation. He has no evidence of grave disability. He was admittedly agitated earlier tonight and states that frequently increased stimulus tends to set him off. He states that he was feeling on comfortably hot tonight and became angered, police were involved and gave him the option of going to longterm or coming here for evaluation. Related Data Home Medications Medication Instructions Recorded Confirmed CLONAZEPAM (Klonopin) 2 mg PO QID ##0 09/01/09 07/02/23 LAMOTRIGINE (Lamictal ([place])) 200 mg PO Q DAY ##0 09/01/09 07/02/23 dextroamphetamine-amphetamine 30 mg PO ##0 06/18/12 07/02/23 mg tablet (Adderall) gabapentin 300 mg tablet,extended mg PO ##0 06/18/12 07/02/23 release 24 hr (Gralise) Previous Rx's Medication Instructions Recorded mupirocin 2 % topical ointment 1 applic topical TID #22 grams 06/17/23 sulfamethoxazole 800 1 tab PO Q12H #14 tabs 06/22/23 mg-trimethoprim 160 mg tablet (Bactrim DS) Allergies Allergy/AdvReac Type Severity Reaction Status Date / Time shellfish derived Allergy Severe Anaphylaxis Verified 12/02/23 10:27 Review of Systems <Daron Gurrola DO - Last Filed: 12/11/23 10:34> Review of Systems Narrative: GENERAL: Denies chills, fatigue, malaise, fever, sweats. HEENT: Denies sinus pain, ear pain, sore throat, difficulty swallowing, dizziness. RESPIRATORY: Denies dyspnea, cough, wheezing, hemoptysis, sputum. CARDIOVASCULAR: Denies chest pain, palpitations, orthopnea, edema, GASTROINTESTINAL: Denies nausea, vomiting, abdominal pain, diarrhea, constipation, melena. : Denies dysuria, frequency, incontinence, hematuria, urinary retention. MUSCULOSKELETAL: denies weakness, joint pain, or bony pain SKIN: Denies rash, skin lesions, or other NEUROLOGIC: Denies weakness, headache, numbness, change in speech, confusion, seizures, incoordination. PSYCHIATRIC: No concerning psychosocial issues. 12 point review of systems is negative except for those stated above Patient History <Daron Gurrola DO - Last Filed: 12/11/23 10:34> Social History Smoking Status: Current some day smoker Smoking Status: Current some day smoker alcohol intake frequency: holidays/special occasions only Substance Use Type: marijuana Exam <Daron Gurrola DO - Last Filed: 12/11/23 10:34> Narrative Exam Narrative: GENERAL: [38] year old patient appears stated age. Well-developed patient, in mild distress. HEAD: Atraumatic. Normocephalic. EYES: Pupils equal round and reactive. Extraocular motions intact. No scleral icterus. No injection or drainage. ENT: Nose without bleeding, purulent drainage. Throat without erythema, tonsillar hypertrophy or exudate. Airway patent. NECK: Trachea midline. Non tender CARDIOVASCULAR: Regular rate and rhythm without murmurs, gallops, or rubs. RESPIRATORY: Clear to auscultation. Breath sounds equal bilaterally. No wheezes, rales, or rhonchi. GASTROINTESTINAL: Abdomen soft, non-tender, nondistended. EXTREMITIES: No edema or joint tenderness. BACK: Nontender without deformity or crepitance. No flank tenderness. NEURO: AOx3. SKIN: No rash or erythema of visible areas Initial Vital Signs Initial Vital Signs: Vital Signs Temperature 97.6 F 12/08/23 20:45 Pulse Rate 80 12/08/23 20:45 Respiratory Rate 16 12/08/23 20:45 Blood Pressure 135/92 H 12/08/23 20:45 Pulse Oximetry 100 12/08/23 20:45 Oxygen Delivery Method Room Air 12/08/23 20:45 <Lynn Renee DO - Last Filed: 12/09/23 18:53> Initial Vital Signs Initial Vital Signs: Vital Signs Temperature 97.6 F 12/08/23 20:45 Pulse Rate 80 12/08/23 20:45 Respiratory Rate 16 12/08/23 20:45 Blood Pressure 135/92 H 12/08/23 20:45 Pulse Oximetry 100 12/08/23 20:45 Oxygen Delivery Method Room Air 12/08/23 20:45 Course <Daron Gurrola, DO - Last Filed: 12/11/23 10:34> Orders Ordered: ED Orders 12/08/23 21:06 Consult to [facility] [place] [facility] Stat 12/08/23 21:10 Urine Drug Screen, Rapid Stat 12/08/23 21:17 Complete Blood Count AUTO DIFF Stat Comprehensive Metabolic Panel Stat Ethanol (ETOH) Stat Vital Signs Vital signs: Vital Signs - 8 hr 12/09/23 12:05 Temperature 98.1 F Pulse Rate 62 Respiratory Rate 18 Blood Pressure 132/77 Pulse Oximetry 98 Oxygen Delivery Method Room Air <Lynn Renee, DO - Last Filed: 12/09/23 18:53> Orders Ordered: ED Orders 12/08/23 21:06 Consult to [facility] [place] - [facility] [employer]ologist Stat 12/08/23 21:10 Urine Drug Screen, Rapid Stat 12/08/23 21:17 Complete Blood Count AUTO DIFF Stat Comprehensive Metabolic Panel Stat Ethanol (ETOH) Stat Vital Signs Vital signs: Vital Signs - 8 hr 12/09/23 12:05 Temperature 98.1 F Pulse Rate 62 Respiratory Rate 18 Blood Pressure 132/77 Pulse Oximetry 98 Oxygen Delivery Method Room Air MDM - Psych <Daron Gurrola, DO - Last Filed: 12/11/23 10:34> Lab Data 12/08/23 21:17 12/08/23 21:17 Labs: Lab Results 12/08/23 12/08/23 Range/Units 21:10 21:17 WBC 9.0 (4.5-11.0) X10^3/uL RBC 4.87 (4.5-5.9) X10^6/uL Hgb 14.4 (13.5-17.5) g/dL Hct 42.8 (41-53) % MCV 88.0 (80-100) fL MCH 29.6 (26-34) PG MCHC 33.7 (30-36) % RDW 14.1 (11.6-14.8) % Plt Count 255 (150-400) X10^3/uL Neut % (Auto) Not Reportable Lymph % (Auto) Not Reportable [place] % (Auto) Not Reportable Eos % (Auto) Not Reportable Baso % (Auto) Not Reportable Lymph # (Auto) Not Reportable [place] # (Auto) Not Reportable Baso # (Auto) Not Reportable Total Counted 100 Seg Neutrophils % 85.0 H (38-70) % Lymphocytes % (Manual) 12.0 L (25-45) % Monocytes % (Manual) 2.0 (2-11) % Eosinophils % (Manual) 1.0 L (2-4) % Neutrophils # (Manual) 7650 H (3906-7819) /uL RBC Morphology Normal morphology Sodium 139 (137-145) mmol/L Potassium 3.7 (3.4-5.1) mmol/L Chloride 99 (98-107) mmol/L Carbon Dioxide 29 (22-32) mmol/L BUN 12 (9-20) mg/dL Creatinine 0.78 (0.66-1.25) mg/dL Estimated GFR > 60 (>60) mL/min BUN/Creatinine Ratio 15.4 (6-22) Glucose 104 H (70-100) mg/dL Calcium 9.6 (8.4-10.2) mg/dL Total Bilirubin 0.6 (0.2-1.3) mg/dL AST 39 (17-59) IU/L ALT 39 (<50) IU/L Alkaline Phosphatase 62 (38-126) U/L Total Protein 8.4 H (6.3-8.2) g/dL Albumin 4.8 (3.5-5.0) g/dL Globulin 3.6 (1.7-4.1) g/dL Albumin/Globulin Ratio 1.3 (1.0-2.8) U Opiates 300ng/mL cut Negative (Negative) Ur Oxycodone Screen Negative (Negative) Urine Methadone Screen Negative (Negative) Ur Barbiturates Screen Negative (Negative) U Tricyclic Antidepress Negative (Negative) Ur Phencyclidine Scrn Negative (Negative) Ur Amphetamines Screen Negative (Negative) U Methamphetamines Scrn Negative (Negative) Ur MDMA Scrn (Ecstasy) Negative (Negative) U Benzodiazepines Scrn Negative (Negative) Urine Cocaine Screen Negative (Negative) U Marijuana (THC) Screen Positive H (Negative) Urine pH Normal (Normal) Urine Specific [place] Normal (Normal) Ethyl Alcohol < 10 ( - 10) mg/dL Ur Creatinine Normal (Normal) Urine Dip Bedside Urine Glucose Negative Bedside Urine Bilirubin - Negative Bedside Urine Ketone - Negative Urine Specific [place] 1.005 Bedside Urine Occult Blood - Negative Bedside Urine pH 6 Bedside Urine Protein - Negative Bedside Urine Urobilinogen - Negative Bedside Urine Nitrite - Negative Bedside Urine Leukocytes - Negative Esterase MDM Narrative Medical decision making narrative: [38] year old patient presents with agitation and desire to speak with social work Multiple etiologies for patient's symptoms considered including, but not limited to: [agitation vs. autism vs. other] Prior Charts reviewed in our EMR Primary Historian: patient Labs reviewed and interpreted by myself: no noted abnormalities Patient's symptoms improved over duration of stay with above-stated therapies. Findings and discharge diagnosis discussed with patient/family followed by verbalization of understanding Return precautions discussed with patient/family whom verbalize understanding of diagnosis and plan <Lynn Renee, DO - Last Filed: 12/09/23 18:53> Lab Data Labs: Lab Results 12/08/23 12/08/23 Range/Units 21:10 21:17 WBC 9.0 (4.5-11.0) X10^3/uL RBC 4.87 (4.5-5.9) X10^6/uL Hgb 14.4 (13.5-17.5) g/dL Hct 42.8 (41-53) % MCV 88.0 (80-100) fL MCH 29.6 (26-34) PG MCHC 33.7 (30-36) % RDW 14.1 (11.6-14.8) % Plt Count 255 (150-400) X10^3/uL Neut % (Auto) Not Reportable Lymph % (Auto) Not Reportable [place] % (Auto) Not Reportable Eos % (Auto) Not Reportable Baso % (Auto) Not Reportable Lymph # (Auto) Not Reportable [place] # (Auto) Not Reportable Baso # (Auto) Not Reportable Total Counted 100 Seg Neutrophils % 85.0 H (38-70) % Lymphocytes % (Manual) 12.0 L (25-45) % Monocytes % (Manual) 2.0 (2-11) % Eosinophils % (Manual) 1.0 L (2-4) % Neutrophils # (Manual) 7650 H (8237-7414) /uL RBC Morphology Normal morphology Sodium 139 (137-145) mmol/L Potassium 3.7 (3.4-5.1) mmol/L Chloride 99 (98-107) mmol/L Carbon Dioxide 29 (22-32) mmol/L BUN 12 (9-20) mg/dL Creatinine 0.78 (0.66-1.25) mg/dL Estimated GFR > 60 (>60) mL/min BUN/Creatinine Ratio 15.4 (6-22) Glucose 104 H (70-100) mg/dL Calcium 9.6 (8.4-10.2) mg/dL Total Bilirubin 0.6 (0.2-1.3) mg/dL AST 39 (17-59) IU/L ALT 39 (<50) IU/L Alkaline Phosphatase 62 (38-126) U/L Total Protein 8.4 H (6.3-8.2) g/dL Albumin 4.8 (3.5-5.0) g/dL Globulin 3.6 (1.7-4.1) g/dL Albumin/Globulin Ratio 1.3 (1.0-2.8) U Opiates 300ng/mL cut Negative (Negative) Ur Oxycodone Screen Negative (Negative) Urine Methadone Screen Negative (Negative) Ur Barbiturates Screen Negative (Negative) U Tricyclic Antidepress Negative (Negative) Ur Phencyclidine Scrn Negative (Negative) Ur Amphetamines Screen Negative (Negative) U Methamphetamines Scrn Negative (Negative) Ur MDMA Scrn (Ecstasy) Negative (Negative) U Benzodiazepines Scrn Negative (Negative) Urine Cocaine Screen Negative (Negative) U Marijuana (THC) Screen Positive H (Negative) Urine pH Normal (Normal) Urine Specific [place] Normal (Normal) Ethyl Alcohol < 10 ( - 10) mg/dL Ur Creatinine Normal (Normal) Urine Dip Bedside Urine Glucose Negative Bedside Urine Bilirubin - Negative Bedside Urine Ketone - Negative Urine Specific [place] 1.005 Bedside Urine Occult Blood - Negative Bedside Urine pH 6 Bedside Urine Protein - Negative Bedside Urine Urobilinogen - Negative Bedside Urine Nitrite - Negative Bedside Urine Leukocytes - Negative Esterase MDM Narrative Medical decision making narrative: [38] year old patient presents with agitation and desire to speak with social work Multiple etiologies for patient's symptoms considered including, but not limited to: [agitation vs. autism vs. other] Prior Charts reviewed in our EMR Primary Historian: patient Labs reviewed and interpreted by myself: no noted abnormalities Patient's symptoms improved over duration of stay with above-stated therapies. Findings and discharge diagnosis discussed with patient/family followed by verbalization of understanding Return precautions discussed with patient/family whom verbalize understanding of diagnosis and plan Patient signed out to me by Dr. Gurrola I have seen evaluated by myself. He has cooperative no suicidal homicidal thoughts. He has tapered down his benzodiazepine use but still has a some twitches but overall not currently taking no history of seizures. Waiting for social work evaluation. Social work reports that patient no longer wants help. He does not meet involuntary criteria. Discharge Plan Departure Patient Disposition: Home Clinical Impression: Depression Instructions: Depression Activity Restrictions/Additional Instructions: *You have been diagnosed with depression *What to do: *Continue to take medications as directed *Follow up with your primary care provider in 2-3 days or call [phone] *Return to ER if you should have any new, worsening or concerning symptoms Prescriptions: No Action mupirocin 2 % ointment 1 applic topical TID Qty: 22 0RF CLONAZEPAM (Klonopin) 2 mg PO QID Qty: 0 LAMOTRIGINE (Lamictal ([place])) 200 mg PO Q DAY Qty: 0 gabapentin [Gralise] 300 MG tablet extended release 24 hr PO Qty: 0 dextroamphetamine-amphetamine [Adderall] 30 MG tablet PO Qty: 0 sulfamethoxazole-trimethoprim [Bactrim DS] 800-160 mg tablet 1 tab PO Q12H Qty: 14 0RF Referrals: Miscellaneous,Doctor, MD [Primary Care Provider] - Stand Alone Forms: Patient Portal/API
[2023-12-08 21:40] LABS: Alanine Aminotransferase 39 IU/L (<50); Albumin 4.8 g/dL (3.5-5.0); Albumin Globulin Ratio 1.3 (1.0-2.8); Alkaline Phosphatase 62 U/L (38-126); Aspartate Aminotransferase 39 IU/L (17-59); BUN Creatinine Ratio 15.4 (6-22); Bilirubin Total 0.6 mg/dL (0.2-1.3); Blood Urea Nitrogen 12 mg/dL (9-20); Calcium 9.6 mg/dL (8.4-10.2); Carbon Dioxide 29 mmol/L (22-32); Chloride 99 mmol/L (98-107); Estimated Glomerular Filt Rate > 60 mL/min (>60); Ethanol (ETOH) < 10 mg/dL; Globulin 3.6 g/dL (1.7-4.1); Glucose 104 mg/dL (70-100); HEMOLYSIS < 15 (0-50); Potassium 3.7 mmol/L (3.4-5.1); Sodium 139 mmol/L (137-145); Total Protein 8.4 g/dL (6.3-8.2)
[2023-12-08 21:42] LABS: Neutrophils Absolute Manual 7650 /uL (3000-5900); RBC Morphology Normal Morphology; Total Cells Counted 100
[2023-12-09 00:31] VITALS: BP 143/82; PULSE 66; RESP 18; O2SAT 98
[2023-12-09 04:24] VITALS: BP 145/85; PULSE 55; RESP 18; O2SAT 99
[2023-12-09 09:02] VITALS: BP 128/82; PULSE 47; RESP 17; O2SAT 100
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
[2023-12-09 12:05] VITALS: BP 132/77; PULSE 62; RESP 18; TEMP 36.7; O2SAT 98
== END 2023-12-09 12:05 | disposition home or self-care (01) ==
PROVIDERS: Emergency Medicine; Emergency Provider Emergency Medicine
DX: F32.A Depression, unspecified (principal); F99 Mental disorder, not otherwise specified
CPT/HCPCS: 80053; 80305; 80320; 81003; 85007; 85025; 99283